=== PATIENT | male | born 1980 | race Caucasian/White ===

== ENCOUNTER 2017-08-05 16:34 | Emergency (ER) | payer BC, OTHER ==
[2017-08-05 16:41] VITALS: BMI 34.4
[2017-08-05] MEDS ORDERED: methylPREDNISolone NA SUCC 125 MG/2 ML VIAL IVPB ONE (16:47)
[2017-08-05] MEDS ORDERED: FAMOTIDINE 20 MG/50 ML IVPB 20 MG/50 ML MG IVPB ONE ×2 (16:47→16:52)
[2017-08-05] MEDS ORDERED: EPINEPHrine 1:1,000 0.3 MG/0.3 ML SYR IM ONE (16:47)
[2017-08-05] MEDS ORDERED: SODIUM CHLORIDE 1,000 ML IV STA (16:47)
--- NOTE | 2017-08-05 16:47 | PDOC ---
History of Present Illness - General History Source: Patient Exam Limitations: No Limitations - History of Present Illness Initial Comments: 08/05/17 17:15 The patient is a 36 year old male with no significant past medical history who presents to the ED with an allergic reaction. The patient reports he has a shrimp allergy and was eating sushi 45 minutes prior to his arrival to the ED. Patient states he developed an itchy rash on his face and throat swelling. Denies fever or chills. Denies chest pain or shortness of breath. Denies nausea , vomiting, or diarrhea. Denies any other symptoms. <Blessing Lacey - Last Filed: 08/05/17 17:28> <Luanne Guido - Last Filed: 08/05/17 18:53> - General Chief Complaint: Allergic Reaction Stated Complaint: ALLERGIC REACTION Time Seen by Provider: 08/05/17 16:47 Past History <Blessing Lacey - Last Filed: 08/05/17 17:28> - Past Medical History COPD: No DVT: No - Surgical History GI Surgery: Yes (gastric bypass) - Suicide/Smoking/Psychosocial Hx Smoking Status: No Smoking History: Never smoked Have you smoked in the past 12 months: No Number of Cigarettes Smoked Daily: 0 Hx Alcohol Use: Yes (SOCIAL) Drug/Substance Use Hx: No Substance Use Type: None <Luanne Guido - Last Filed: 08/05/17 18:53> - Past Medical History Allergies/Adverse Reactions: Allergies Allergy/AdvReac Type Severity Reaction Status Date / Time shellfish derived Allergy Verified 08/05/17 16:40 Home Medications: Ambulatory Orders NK [No Known Home Medication] 01/03/16 Review of Systems - Review of Systems Able to Perform ROS?: Yes Comments:: 08/05/17 17:16 CONSTITUTIONAL: Absent: fever, chills, diaphoresis, generalized weakness, malaise, loss of appetite HEENT: + throat swelling Absent: rhinorrhea, nasal congestion, throat pain, difficulty swallowing, mouth swelling, ear pain, eye pain, visual Changes CARDIOVASCULAR: Absent: chest pain, syncope, palpitations, irregular heart rate, lightheadedness , peripheral edema RESPIRATORY: Absent: cough, shortness of breath, dyspnea with exertion, orthopnea, wheezing, stridor, hemoptysis GASTROINTESTINAL: Absent: abdominal pain, abdominal distension, nausea, vomiting, diarrhea, constipation, melena, hematochezia GENITOURINARY: Absent: dysuria, frequency, urgency, hesitancy, hematuria, flank pain, genital pain MUSCULOSKELETAL: Absent: myalgia, arthralgia, joint swelling SKIN: + rash Absent: itching, pallor HEMATOLOGIC/IMMUNOLOGIC: Absent: easy bleeding, easy bruising, lymphadenopathy, frequent infections ENDOCRINE: Absent: unexplained weight gain, unexplained weight loss, heat intolerance, cold intolerance NEUROLOGIC: Absent: headache, focal weakness or paresthesias, dizziness, unsteady gait, seizure, mental status changes, bladder or bowel incontinence PSYCHIATRIC: Absent: anxiety, depression, suicidal or homicidal ideation, hallucinations. All Other Systems: Reviewed and Negative <Blessing Lacey - Last Filed: 08/05/17 17:28> *Physical Exam - Vital Signs Last Vital Signs Temp Pulse Resp BP Pulse Ox 97.6 F 102 H 20 121/71 100 08/05/17 16:38 08/05/17 16:38 08/05/17 16:38 08/05/17 16:38 08/05/17 16:38 - Physical Exam Comments: 08/05/17 17:16 GENERAL: Well developed, well nourished. Awake and alert. No acute distress. HEENT: Normocephalic, atraumatic. PERRLA, EOMI. No conjunctival pallor. Sclera are non- icteric. Moist mucous membranes. Oropharynx is clear, uvula is not significantly swollen. NECK: Supple. Full ROM. No JVD. Carotid pulses 2+ and symmetric, without bruits. No thyromegaly. NCo lymphadenopathy. CARDIOVASCULAR: Regular rate and rhythm. No murmurs, rubs, or gallops. Distal pulses are 2+ and symmetric. PULMONARY: No evidence of respiratory distress. Lungs clear to auscultation bilaterally. No wheezing, rales or rhonchi. ABDOMINAL: Soft. Non-tender. Non-distended. No rebound or guarding. No organomegaly. Normoactive bowel sounds. MUSCULOSKELETAL Normal range of motion at all joints. No bony deformities or tenderness. No CVA tenderness. EXTREMITIES: No cyanosis. No clubbing. No edema. No calf tenderness. SKIN: + hives throughout extremities and face Warm and dry. Normal capillary refill. No jaundice. NEUROLOGICAL: Alert, awake, appropriate. Cranial nerves 2-12 intact. No deficits to light touch and temperature in face, upper extremities and lower extremities. No motor deficits in the in face, upper extremities and lower extremities. Normoreflexic in the upper and lower extremities. Normal speech. Toes are down- going bilaterally. Gait is normal without ataxia. PSYCHIATRIC: Cooperative. Good eye contact. Appropriate mood and affect. <Blessing Lacey - Last Filed: 08/05/17 17:28> - Vital Signs Last Vital Signs Temp Pulse Resp BP Pulse Ox 97.6 F 102 H 20 121/71 100 08/05/17 16:38 08/05/17 16:38 08/05/17 16:38 08/05/17 16:38 08/05/17 16:38 <Luanne Guido - Last Filed: 08/05/17 18:53> ED Treatment Course - Medications Given in the ED: ED Medications Discontinued Medications Generic Name Dose Route Start Last Admin Trade Name Freq PRN Reason Stop Dose Admin Diphenhydramine HCl 50 mg 08/05/17 16:47 08/05/17 16:59 Benadryl Injection - IVPB 08/05/17 16:48 50 mg ONCE ONE Administration Methylprednisolone Sodium Succinate 125 mg 08/05/17 16:47 08/05/17 17:00 Solu-Medrol - IVPB 08/05/17 16:48 125 mg ONCE ONE Administration <Blessing Lacey - Last Filed: 08/05/17 17:28> - LABORATORY CBC & Chemistry Diagram: 08/05/17 17:29 08/05/17 17:29 <Luanne Guido - Last Filed: 08/05/17 18:53> Medical Decision Making - Medical Decision Making 08/05/17 18:25 pt had sushi and has allergy to shrimp / He did not order shrimp but his significant partner did. REVIEWING LABS: his hemoglobin and hematocrit are low. When I spoke to the patient said he has he does have a long-standing history of anemia and has received iron infusions. Also informed the patient the his total bilirubin is elevated at 2. the rest of LFTs are unremarkable 08/05/17 18:44 08/05/17 18:47 pt was never short of breath lungs are clear hives resolved/pt has no complaints at this time <Luanne Guido - Last Filed: 08/05/17 18:53> *DC/Admit/Observation/Transfer - Attestations Scribe Attestion: 08/05/17 17:28 Documentation prepared by Blessing Lacey, acting as medical assistant per diem for Luanne Guido MD <Blessing Lacey - Last Filed: 08/05/17 17:28> <Luanne Guido - Last Filed: 08/05/17 18:53> Diagnosis at time of Disposition: Seafood allergy - Discharge Dispostion Condition at time of disposition: Stable - Patient Instructions Printed Discharge Instructions: DI Shellfish Allergy Additional Instructions: please followup with your regular physician excelsior picker your medications at your pharmacy DO NOT EAT SHRIMP
[2017-08-05] MEDS ORDERED: methylPREDNISolone NA SUCC 125 MG/2 ML VIAL ONE (16:52)
[2017-08-05 17:37] LABS: BASO % 0.1 % (0-2.0); EOS % 0.2 % (0-4.5); HEMATOCRIT 28.5 % (35.4-49); HEMOGLOBIN 9.9 GM/dL (11.7-16.9); LYMPH % 6.4 % (8-40); MCH 34.1 pg (25.7-33.7); MCHC 34.9 g/dl (32.0-35.9); MEAN CELL VOLUME 97.9 fl (80-96); MEAN PLT VOLUME 6.3 fl (7.5-11.1); MONO % 7.3 % (3.8-10.2); PLATELET COUNT 174 K/MM3 (134-434); RBC 2.91 M/mm3 (4.00-5.60); RDW 16.6 % (11.9-15.9); WHITE BLOOD COUNT 11.7 K/mm3 (4.0-10.0)
[2017-08-05 18:07] LABS: ALBUMIN 3.1 g/dl (3.4-5.0); ALK PHOS 52 U/L (45-117); ANION GAP 8 (8-16); BLOOD UREA NITROGEN 21 mg/dL (7-18); CALCIUM 7.7 mg/dL (8.5-10.1); CHLORIDE 101 mmol/L (98-107); CO2 26 mmol/L (21-32); CREATININE 0.9 mg/dL (0.7-1.3); GLUCOSE,RANDOM 115 mg/dL (74-106); POTASSIUM 3.8 mmol/L (3.5-5.1); SGOT/AST 12 U/L (15-37); SGPT/ALT 16 U/L (12-78); SODIUM 135 mmol/L (136-145); TOT PROT 5.7 g/dl (6.4-8.2)
[2017-08-05 19:47] VITALS: BP 118/68; PULSE 98; TEMP 98.1
== END 2017-08-05 19:35 | disposition home or self-care (01) ==
LOC: JER 16:34
PROC: 3E033GC Introduction of Other Therapeutic Substance into Peripheral Vein, Percutaneous Approach (ICD-10-PCS; principal; 2017-08-05)
PROC: 3E0333Z Introduction of Anti-inflammatory into Peripheral Vein, Percutaneous Approach (ICD-10-PCS; 2017-08-05)
PROC: 3E033GC Introduction of Other Therapeutic Substance into Peripheral Vein, Percutaneous Approach (ICD-10-PCS; 2017-08-05)
DX: T78.1XXA Other adverse food reactions, not elsewhere classified, initial encounter (principal); R21 Rash and other nonspecific skin eruption; Z91.013 Allergy to seafood
CPT/HCPCS: 36415; 80053; 85025; 99283-25

== ENCOUNTER 2020-04-28 21:08 | Emergency (ER) | payer BC, OTHER ==
[2020-04-28 21:25] VITALS: BP 155/70; PULSE 85; TEMP 97.8; BMI 35.9
[2020-04-28] MEDS ORDERED: ACETAMINOPHEN 325 MG TABLET (FP) PO ONE (21:25)
--- NOTE | 2020-04-28 21:26 | PDOC ---
Rapid Medical Evaluation Time Seen by Provider: 04/28/20 21:23 Medical Evaluation: Allergies Allergy/AdvReac Type Severity Reaction Status Date / Time iodine Allergy Swelling Verified 01/19/20 09:14 shellfish derived Allergy Verified 01/19/20 09:14 04/28/20 21:23 Pt presents for evaluation of chest pain. Was seen in urgent care today and was having persistent chest pains, so he came to the ED for evaluation. Hx of Covid in September Exam: RRR, Lungs CTAB Orders: labs, EKG Pt to proceed to the ER for further evaluation Discharge Disposition - Diagnosis Chest pain Qualifiers: Chest pain type: unspecified Qualified Code(s): R07.9 - Chest pain, unspecified - Referrals - Patient Instructions - Post Discharge Activity
[2020-04-28] MEDS ORDERED: ACETAMINOPHEN 325 MG TABLET (FP) ONE (23:43)
--- NOTE | 2020-04-28 23:51 | PDOC ---
History of Present Illness - General Chief Complaint: Chest Pain Stated Complaint: CHEST PAIN Time Seen by Provider: 04/28/20 21:23 History Source: Patient Exam Limitations: No Limitations - History of Present Illness Initial Comments: 04/28/20 23:48 HISTORY OF PRESENT ILLNESS: 39-year-old male past medical history of COVID in September of this year presents emergency department for evaluation of left-sided chest pain radiating to his right arm. Reports the pain started earlier today when he was in his backyard doing some yard work. He describes the pain as a sharp sensation rated 8/10 but over the time has diminished now to 5/10 more of a dull ache. Patient went to an urgent care today for evaluation and was told that his testing was all negative at that time. He was told at the time of pain continued he should present to the emergency department for reevaluation. Patient does endorse having residual neurologic symptoms since his COVID including numbness and tingling to his upper back. No recent travel or sick contacts. PAST MEDICAL HISTORY: See HPI SURGICAL HISTORY: Denies ALLERGIES: Iodine, shellfish REVIEW OF SYSTEMS General/Constitutional: Denies fever or chills. Denies weakness, weight change. HEENT: Denies change in vision. Denies ear pain or discharge. Denies sore throat. Cardiovascular: See HPI Respiratory: Denies cough, wheezing, or hemoptysis. Gastrointestinal: Denies nausea, vomiting, diarrhea or constipation. Denies rectal bleeding. Genitourinary: Denies dysuria, frequency, or change in urination. Musculoskeletal: Denies joint or muscle swelling or pain. Denies neck or back pain. Skin and breasts: Denies rash or easy bruising. Neurologic: Denies headache, vertigo, loss of consciousness, or loss of sensation. Psychiatric: Denies depression or anxiety. Endocrine: Denies increased thirst. Denies abnormal weight change. Hematologic/Lymphatic: Denies anemia, easy bleeding, or history of blood clots. Allergic/Immunologic: Denies hives or skin allergy. Denies latex allergy. PHYSICAL EXAM General Appearance: Well-appearing, appropriately dressed. No apparent distress, no intoxication. HEENT: EOMI, PERRLA, normal ENT inspection, normal voice, TMs normal, pharynx normal. No conjunctival pallor. No photophobia, scleral icterus. Neck: Supple. Trachea midline. No tenderness, rigidity, carotid bruit, stridor, lymphadenopathy, or thyromegaly. No JVD. Respiratory/Chest: Lungs CTAB. No shortness of breath, chest tenderness, re spiratory distress, accessory muscle use. No crackles, rales, rhonchi, stridor, wheezing, dullness Cardiovascular: RRR. S1, S2. No JVD, murmur, bradycardia, tachycardia. No edema present. Vascular Pulses: Dorsalis-Pedis (R): 2+, Dorsalis-Pedis (L): 2+ Integumentary: Appropriate color, dry, warm. No cyanosis, erythema, jaundice or rash Past History - Medical History Allergies/Adverse Reactions: Allergies Allergy/AdvReac Type Severity Reaction Status Date / Time iodine Allergy Swelling Verified 01/19/20 09:14 shellfish derived Allergy Verified 01/19/20 09:14 Home Medications: Ambulatory Orders Esomeprazole Magnesium [Nexium 24Hr] 20 mg PO DAILY 12/29/19 Vitamin B-12 1 tab PO DAILY 01/19/20 Acetaminophen W/ Codeine #3 [Tylenol # 3 -] 1 tab PO Q4H #30 tablet MDD 6 03/11/20 Azithromycin [Zithromax 250mg Tablets -] 250 mg PO UTDICT #6 tab 04/29/20 Prednisone [Prednisone 50 MG TABLETS] 50 mg PO DAILY #4 tablet 04/29/20 Anemia: Yes Asthma: No Cancer: No Cardiac Disorders: No CVA: No COPD: No CHF: No DVT: No Dementia: No Diabetes: No (Pre diabetes) GI Disorders: No (GERD) Disorders: No HTN: No Hypercholesterolemia: No Liver Disease: No Seizures: No Thyroid Disease: No - Surgical History Abdominal Surgery: Yes (Gastric Bypass 11 yrs ago) Appendectomy: No Cardiac Surgery: No Cholecystectomy: No GI Surgery: Yes (gastric bypass) Lung Surgery: No Neurologic Surgery: No Orthopedic Surgery: Yes (right hand puched wall) - Psycho-Social/Smoking History Smoking Status: No Smoking History: Never smoked Have you smoked in the past 12 months: No Number of Cigarettes Smoked Daily: 0 - Substance Abuse Hx (Audit-C & DAST Scrn) How often the patient has a drink containing alcohol: Monthly or less How often the patient has six or more drinks on one occasion: Less than monthly Score: In Men: 4 or > Positive; In Women: 3 or > Positive: 2 Screen Result (Pos requires Nsg. Audit-10AR): Negative In the last yr the pt used illegal drug/Rx for NonMed reason: No Score: Yes response is considered Positive: 0 Screen Result (Positive result requires Nsg. DAST-10): Negative Cardiac Specific PMH - Complaint Specific PMHX Pacemaker: No *Physical Exam - Vital Signs Last Vital Signs Temp Pulse Resp BP Pulse Ox 97.8 F 85 19 155/70 100 04/28/20 21:21 04/28/20 21:21 04/28/20 21:21 04/28/20 21:21 04/28/20 21:21 ED Treatment Course - LABORATORY CBC & Chemistry Diagram: 04/28/20 00:01 - ADDITIONAL ORDERS Additional order review: Laboratory Results 04/28/20 00:01 PT with INR 10.90 INR 0.92 04/28/20 00:01 RBC 4.53 MCV 77.5 L MCHC 31.8 L RDW 20.2 H MPV 9.4 D Neutrophils % 47.9 D Lymphocytes % 40.2 H D Monocytes % 9.7 Eosinophils % 1.3 D Basophils % 0.9 D - Medications Given in the ED: ED Medications Discontinued Medications Generic Name Dose Route Start Last Admin Trade Name Jannq PRN Reason Stop Dose Admin Acetaminophen 650 mg 04/28/20 21:25 04/29/20 00:03 Tylenol - PO 04/28/20 21:26 650 mg ONCE ONE Administration Medical Decision Making - Medical Decision Making 04/28/20 23:50 A/P: 39-year-old male with left-sided chest pain since this afternoon Pain is not reproducible Physical exam unremarkable Differential diagnosis includes but is not limited to-pneumonia, ACS, long-term effects of COVID-19 infection, musculoskeletal, PE. PE less likely patient has a PERC score of 0. Orders per RME Likely discharge 04/29/20 01:22 04/29/20 02:01 Patient has been signed out to Dr. Domingo for continued evaluation. Discharge - Discharge Information Problems reviewed: Yes Clinical Impression/Diagnosis: Chest pain - Admission No - Additional Discharge Information Prescriptions: Prednisone [Prednisone 50 MG TABLETS] 50 mg PO DAILY #4 tablet Azithromycin [Zithromax 250mg Tablets -] 250 mg PO UTDICT #6 tab - Follow up/Referral Referrals: Nina Tucker MD [Primary Care Provider] - - Patient Discharge Instructions - Post Discharge Activity
[2020-04-29 00:58] LABS: BASO % 0.9 % (0-2.0); EOS % 1.3 % (0-4.5); HEMATOCRIT 35.2 % (35.4-49); HEMOGLOBIN 11.2 GM/dL (11.7-16.9); LYMPH % 40.2 % (8-40); MCH 24.7 pg (25.7-33.7); MCHC 31.8 g/dl (32.0-35.9); MEAN CELL VOLUME 77.5 fl (80-96); MEAN PLT VOLUME 9.4 fl (7.5-11.1); MONO % 9.7 % (3.8-10.2); NEUT % 47.9 % (42.8-82.8); PLATELET COUNT 270 K/MM3 (134-434); RBC 4.53 M/mm3 (4.00-5.60); RDW 20.2 % (11.9-15.9); WHITE BLOOD COUNT 6.2 K/mm3 (4.0-10.0)
[2020-04-29 01:11] LABS: INR 0.92 (0.83-1.09); PROTHROMBIN TIME (PATIENT) 10.9 SEC (9.7-13.0)
--- NOTE | 2020-04-29 02:30 | PDOC ---
*Physical Exam - Vital Signs Last Vital Signs Temp Pulse Resp BP Pulse Ox 97.8 F 85 19 155/70 100 04/28/20 21:21 04/28/20 21:21 04/28/20 21:21 04/28/20 21:21 04/28/20 21:21 - Physical Exam Patient was received at sign out Patient had pending labs at the time of sign out Labs hemolyzed. Patient had labs redrawn. Laboratory Tests 04/28/20 04/28/20 04/29/20 00:01 00:01 01:35 WBC 6.2 RBC 4.53 Hgb 11.2 L Hct 35.2 L D MCV 77.5 L MCH 24.7 L D MCHC 31.8 L RDW 20.2 H Plt Count 270 D MPV 9.4 D Absolute Neuts (auto) 3.0 Neutrophils % 47.9 D Lymphocytes % 40.2 H D Monocytes % 9.7 Eosinophils % 1.3 D Basophils % 0.9 D Nucleated RBC % 0 PT with INR 10.90 INR 0.92 Sodium Cancelled Potassium Cancelled Chloride Cancelled Carbon Dioxide Cancelled Anion Gap Cancelled BUN Cancelled Creatinine Cancelled Est GFR (CKD-EPI)AfAm Cancelled Est GFR (CKD-EPI)NonAf Cancelled Random Glucose Cancelled Calcium Cancelled Total Bilirubin Cancelled AST Cancelled ALT Cancelled Alkaline Phosphatase Cancelled Creatine Kinase Cancelled Troponin I Cancelled Total Protein Cancelled Albumin Cancelled 04/29/20 04:06 WBC RBC Hgb Hct MCV MCH MCHC RDW Plt Count MPV Absolute Neuts (auto) Neutrophils % Lymphocytes % Monocytes % Eosinophils % Basophils % Nucleated RBC % PT with INR INR Sodium 139 Potassium 4.0 Chloride 107 Carbon Dioxide 25 Anion Gap No Result Required. BUN 13.0 Creatinine 0.8 Est GFR (CKD-EPI)AfAm 130.42 Est GFR (CKD-EPI)NonAf 112.53 Random Glucose 88 Calcium 8.6 Total Bilirubin 0.2 AST 17 ALT 31 Alkaline Phosphatase 86 Creatine Kinase Troponin I Total Protein 7.4 Albumin 3.5 troponin per the physical exam sheet shows that the patient had <0.015. The data is not uploaded to the system, however, this was part of the physical copy that was faxed to the emergency department during down time. Patient on re-assessment had no chest pain and had all symptoms resolve Patient was given return precautions. Patient had to have discharge conducted with downtime forms. He was instructed to follow up with his primary medical doctor within 1 week after discharge. ED Treatment Course - LABORATORY CBC & Chemistry Diagram: 04/28/20 00:01 04/29/20 04:06 - ADDITIONAL ORDERS Additional order review: Laboratory Results 04/28/20 00:01 PT with INR 10.90 INR 0.92 04/28/20 00:01 RBC 4.53 MCV 77.5 L MCHC 31.8 L RDW 20.2 H MPV 9.4 D Neutrophils % 47.9 D Lymphocytes % 40.2 H D Monocytes % 9.7 Eosinophils % 1.3 D Basophils % 0.9 D - Medications Given in the ED: ED Medications Discontinued Medications Generic Name Dose Route Start Last Admin Trade Name Iram PRN Reason Stop Dose Admin Acetaminophen 650 mg 04/28/20 21:25 04/29/20 00:03 Tylenol - PO 04/28/20 21:26 650 mg ONCE ONE Administration Discharge - Discharge Information Problems reviewed: Yes Clinical Impression/Diagnosis: Chest pain Condition: Improved Disposition: HOME - Additional Discharge Information Prescriptions: Prednisone [Prednisone 50 MG TABLETS] 50 mg PO DAILY #4 tablet Azithromycin [Zithromax 250mg Tablets -] 250 mg PO UTDICT #6 tab - Follow up/Referral Referrals: Nina Tucker MD [Primary Care Provider] - - Patient Discharge Instructions Patient Printed Discharge Instructions: DI for Atypical Chest Pain, DI for Chest Pain Additional Instructions: You were seen in the emergency department for the evaluation of your - Post Discharge Activity
--- OUTSIDE RECORDS SUMMARY | 2020-04-29 06:32 | XMS ---
:1980 [facility] Care Team Providers Name Role Phone EMERGENCY SERVICE, X Unavailable Unavailable BRAYDON ORANTES Unavailable Unavailable Re-disclosure Warning The records that you are about to access may contain information from federally- assisted alcohol or drug abuse programs. If such information is present, then the following federally mandated warning applies: This information has been disclosed to you from records protected by federal confidentiality rules (42 CFR part 2). The federal rules prohibit you from making any further disclosure of this information unless further disclosure is expressly permitted by the written consent of the person to whom it pertains or as otherwise permitted by 42 CFR part 2. A general authorization for the release of medical or other information is NOT sufficient for this purpose. The Federal rules restrict any use of the information to criminally investigate or prosecute any alcohol or drug abuse patient.The records that you are about to access may contain highly sensitive health information, the redisclosure of which is protected by Article 27-F of the [facility] Public Health law. If you continue you may haveaccess to information: Regarding HIV / AIDS; Provided by facilities licensed or operated by the [facility] Office of Mental Health; or Provided by the [facility] Office for People With Developmental Disabilities. If such information is present, then the following [facility] mandated warning applies: This information has been disclosed to you from confidential records which are protected by state law. State law prohibits you from making any further disclosure of this information without the specific written consent of the person to whom it pertains, or as otherwise permitted by law. Any unauthorized further disclosure in violation of state law may result in a fine or skilled nursing sentence or both. A general authorization for the release of medical or other information is NOT sufficient authorization for further disclosure. Encounters Encounter Providers Location Date Indications Data Source(s ) Emergency Attender: LAMBERTO, [facility] EM[facility]GENCY SERV[facility], EDT Corpor ation XAdmitter: BRAYDON ORANTES POSS COVID Insurance Providers Payer Policy type Policy ID Covered Covered green party's Policy Pl an name / Coverage green party ID relationship to Nye Inf ormation type nye BC PPO [id number] S [id number] GHI CBP [id number] S [id number] OUTPT GHI CBP [id number] S [id number] OUTPT BC PPO [id number] S [id number] BC PPO [id number] S [id number] UNK UNK UNK Problems, Conditions, and Diagnoses Code Display Name Description Problem Type Effective Data Sour ce(s) Dates Z91.013 Allergy to ALLERGY TO Diagnosis 10/23/2019 [place] seafood SEAFOOD 03:50:00 PM [facility] EDT Care Corporati on R05 Cough COUGH Diagnosis 10/23/2019 [place] 03:50:00 PM [facility] EDT Care Corporati on U07.1 COVID-19 ACUTE COVID-19 ACUTE Diagnosis 10/23/2019 [facility] RESPIRATORY RESPIRATORY 03:50:00 PM Pending sale to [facility] DISEASE DISEASE EDT Care Corporati on R50.9 Fever, FEVER, Diagnosis 10/23/2019 [place] unspecified UNSPECIFIED 03:50:00 PM Pending sale to [facility] EDT Care Corporati on Results ID Date Data Source [id number] 03/01/2020 03:11:00 PM EDT [facility] Name Value Range Interpretation Description Data Sup porting Code Source(s) Document(s ) SARS CoV-2 [facility] Interpretation This lab was ordered by [facility] and re ported by [facility]. ID Date Data Source [id number] 03/01/2020 12:00:00 AM EDT [facility] Name Value Range Interpretation Code Description Data Candice rce(s) Supporting Document(s ) 2019-nCoV [facility] RNA XXX LUIZ+probe- Imp This lab was ordered by [employer] [facility] [employer] and re ported by [employer]. ID Date Data Source [id number] 02/28/2020 10:06:00 PM EDT [facility] Name Value Range Interpretation Description Data Sup porting Code Source(s) Document(s ) SARS [facility] coronavirus 2 RNA This lab was ordered by [facility] and reported by [facility]. ID Date Data Source [id number] 01/19/2020 02:24:00 PM EDT [facility] Name Value Range Interpretation Code Description Data Candice rce(s) Supporting Document(s ) SARS-CoV-2 [facility] RNA Resp [facility] Ql LUIZ+probe This lab was ordered by [facility] nd reported by [facility]. ID Date Data Source [id number] 01/02/2020 10:55:00 AM EDT [facility] Name Value Range Interpretation Code Description Data Candice rce(s) Supporting Document(s ) SARS-COV-2 [facility] RNA RESP [facility]ostics QL LUIZ+PROBE This lab was ordered by [facility] TURCI[facility] and reported by [facility]. ID Date Data Source [id number] 10/18/2019 12:00:00 AM EDT [facility] Name Value Range Interpretation Code Description Data Candice rce(s) Supporting Document(s ) 2019-nCoV [facility] RNA XXX LUIZ+probe- Imp This lab was ordered by [facility] and reported by [employer] Procedure
[2020-04-29 07:16] LABS: CREATININE 0.8 mg/dL (0.55-1.3); GLUCOSE,RANDOM 88 mg/dL (74-106); SODIUM 139 mmol/L (136-145)
[2020-04-29 07:17] LABS: CALCIUM 8.6 mg/dL (8.5-10.1); CHLORIDE 107 mmol/L (98-107); TOT PROT 7.4 g/dl (6.4-8.2)
[2020-04-29 07:18] LABS: ALBUMIN 3.5 g/dl (3.4-5.0); BILIRUBIN,TOTAL 0.2 mg/dL (0.2-1); SGOT/AST 17 U/L (15-37); SGPT/ALT 31 U/L (13-61)
[2020-04-29 07:19] LABS: ALK PHOS 86 U/L (45-117)
[2020-04-29 08:15] LABS: CO2 25 mmol/L (21-32)
--- NOTE | 2020-04-29 13:22 | EKG ---
Test Reason : Blood Pressure : / mmHG Vent. Rate : 073 BPM Atrial Rate : 073 BPM P-R Int : 154 ms QRS Dur : 096 ms QT Int : 386 ms P-R-T Axes : 064 064 052 degrees QTc Int : 425 ms NORMAL SINUS RHYTHM NORMAL ECG NO PREVIOUS ECGS AVAILABLE Confirmed by ADAL KLINE MD ([id number]) on 04/29/2020 1:22:45 PM Referred By: Confirmed By:ADAL KLINE MD
== END 2020-04-29 05:04 | disposition home or self-care (01) ==
LOC: JER 21:08
DX: R07.9 Chest pain, unspecified (principal)
CPT/HCPCS: 36415; 71046-TC-FY; 80053; 85025; 85610; 93005; 93010; 99285-25